=== PATIENT | male | born 1975 | race Caucasian/White ===

== ENCOUNTER 2023-09-16 18:42 | Emergency (ER) | payer OTHER ==
[2023-09-16 20:06] VITALS: BP 93/62; PULSE 75; RESP 22; TEMP 98.5
--- NOTE | 2023-09-16 20:06 | ED ---
General Adult HPI - General Chief complaint: Extremity Injury, Lower Stated complaint: left knee injury Time Seen by Provider: 09/16/23 20:00 Source: patient Mode of arrival: ambulatory Limitations: no limitations - History of Present Illness Initial comments: Patient is a 48-year-old male who presents to the emergency department for left knee injury. Patient currently resides at [facility]. He fell today while playing volleyball hurting his left knee. Patient states he has mild pain but was required to come for evaluation. Patient did not hit his head or lose consciousness. He took Motrin for arrival with improvement of pain. He denies pain with ambulation. Patient also complains of ringing in his ears for the past few days. He just finished an antibiotic for sinus infection. He denies fever, chills, headache, nausea, vomiting, loss of balance, ear pain. - Related Data Allergies Allergy/AdvReac Type Severity Reaction Status Date / Time No Known Allergies Allergy Verified 09/16/23 20:01 Review of Systems ROS Statement: Those systems with pertinent positive or pertinent negative responses have been documented in the HPI. ROS Other: All systems not noted in ROS Statement are negative. Past Medical History Past Medical History: No Reported History Past Surgical History: No Surgical Hx Reported Past Psychological History: No Psychological Hx Reported Past Alcohol Use History: None Reported Past Drug Use History: None Reported General Exam Limitations: no limitations General appearance: alert ENT exam: Present: normal oropharynx. Absent: TM's normal bilaterally (Fluid behind bilateral tympanic membranes no erythema or bulging) Neck exam: Present: normal inspection, full ROM. Absent: tenderness, meningismus, lymphadenopathy Respiratory exam: Present: normal lung sounds bilaterally. Absent: respiratory distress, wheezes, rales, rhonchi, stridor Cardiovascular Exam: Present: regular rate, normal rhythm, normal heart sounds. Absent: systolic murmur, diastolic murmur, rubs, gallop, clicks Left Upper Leg exam: Present: normal inspection, full ROM. Absent: tenderness, swelling Knee exam: Present: normal inspection, full ROM, tenderness (Mild medial left knee). Absent: swelling, abrasion, laceration, ecchymosis, deformity, crepitus, dislocation, erythema, effusion Lower Leg exam: Present: normal inspection, full ROM. Absent: tenderness, swelling Neurovascular tendon exam: Present: no vascular compromise. Absent: sensory deficit Gait: observed and normal Neurological exam: Present: alert Psychiatric exam: Present: normal affect, normal mood Skin exam: Present: warm, dry, intact, normal color. Absent: rash Course Vital Signs 09/16/23 19:58 Temperature 98.5 F Pulse Rate 75 Respiratory 22 Rate Blood Pressure 93/62 O2 Sat by Pulse 98 Oximetry Procedures - Orthopedic Splinting/Casting Injury #1 Side: left Lower Extremity Injury Location: knee Lower Extremity Immobilizer: Kin wrap Medical Decision Making - Medical Decision Making Was pt. sent in by a medical professional or institution (, [facility], PULMONARY NURSE PRACTITIONER, urgent care, hospital, or retirement...) When possible be specific @ [facility] Did you speak to anyone other than the patient for history (EMS, parent, family, police, friend...)? What history was obtained from this source @ -No Did you review nursing and triage notes (agree or disagree)? Why? @ -I reviewed and agree with nursing and triage notes Were old charts reviewed (outside hosp., previous admission, EMS record, old EKG, old radiological studies, urgent care reports/EKG's, retirement records)? Report findings @ -No old charts were reviewed Differential Diagnosis (chest pain, altered mental status, abdominal pain women, abdominal pain men, vaginal bleeding, weakness, fever, dyspnea, syncope, headache, dizziness, GI bleed, back pain, seizure, CVA, palpatations, mental health)? @ -not applicable EKG interpreted by me (3pts min.). @ -As above X-rays interpreted by me (1pt min.). @ -No fracture or dislocation of the left knee CT interpreted by me (1pt min.). @ -None done U/S interpreted by me (1pt. min.). @ -None done What testing was considered but not performed or refused? (CT, X-rays, U/S, labs)? Why? @ -None What meds were considered but not given or refused? Why? @ -None Did you discuss the management of the patient with other professionals (professionals i.e. [facility] Rehman, PULMONARY NURSE PRACTITIONER, lab, RT, psych nurse, social studies teacher, lace inspector, teacher, search and rescue officer, skilled nursing case manager)? Give summary @ -No Was smoking cessation discussed for >3mins.? @ -No Was critical care preformed (if so, how long)? @ -No Were there social determinants of health that impacted care today? How? (Homelessness, low income, unemployed, alcoholism, drug addiction, transportation, low edu. Level, literacy, decrease access to med. care, alf, rehab)? @ -No Was there de-escalation of care discussed even if they declined (Discuss DNR or withdrawal of care, Hospice)? DNR status @ -No What co-morbidities impacted this encounter? (DM, HTN, Smoking, COPD, CAD, Cancer, CVA, ARF, Chemo, Hep., AIDS, mental health diagnosis, sleep apnea, morbid obesity)? @ -None Was patient admitted / discharged? Hospital course, mention meds given and route, prescriptions, significant lab abnormalities, going to OR and other pertinent info. @ -48-year-old presenting with left knee injury. X-ray interpreted by myself shows no acute fracture or dislocation. Patient has mild pain without erythema or swelling. Able to ambulate without limitation. The left knee was wrapped in Kin bandage we discussed RICE in detail. Patient does have bilateral ear effusion without infection. Recommended Zyrtec or Claritin and follow up with ENT specialist for tinnitus Undiagnosed new problem with uncertain prognosis? @ -No Drug Therapy requiring intensive monitoring for toxicity (Heparin, Nitro, Insulin, Cardizem)? @ -No Were any procedures done? @ -No Diagnosis/symptom? @ -Tinnitus, left knee sprain, bilateral ear effusion Acute, or Chronic, or Acute on Chronic? @ Acute Uncomplicated (without systemic symptoms) or Complicated (systemic symptoms)? @ -Uncomplicated Side effects of treatment? @ -No Exacerbation, Progression, or Severe Exacerbation? @ -No Poses a threat to life or bodily function? How? (Chest pain, USA, CT, pneumonia, PE, COPD, DKA, ARF, appy, cholecystitis, CVA, Diverticulitis, Homicidal, Suicidal, threat to staff... and all critical care pts) @ -No Dr. Millard is my attending Disposition Clinical Impression: Left knee sprain, Acute effusion of both middle ears, Tinnitus Disposition: HOME SELF-CARE Condition: Good Instructions (If sedation given, give patient instructions): Knee Sprain (ED), Tinnitus (ED) Additional Instructions: Take allergy medications such as Zyrtec or Claritin for fluid in ears. Follow up with ENT specialist in 1-2 days. Rest ice and elevate the left knee. Alternate Tylenol and Motrin for any pain. Return to the emergency department if you experience new, concerning, or worsening symptoms. Is patient prescribed a controlled substance at d/c from ED?: No Referrals: None,Stated [Primary Care Provider] - 1-2 days Wolf Thompson MD [STAFF PHYSICIAN] - 1-2 days
--- NOTE | 2023-09-16 21:07 | XR ---
EXAMINATION TYPE: XR knee complete LT DATE OF EXAM: 09/16/2023 8:43 PM CLINICAL INDICATION:Male, 48 years old with history of injury; COMPARISON: None. TECHNIQUE: XR knee complete LT; examined in Frontal, lateral and oblique projections. FINDINGS: No evidence of any acute osseous pathology, soft tissue swelling, or joint effusion is no jonnie. Fabella is present. Skin consultations are scattered throughout the extremity. Tricompartmental osteophyte formation involving the femoral condyles, tibial plateau and patella. Mi ld joint space narrowing. IMPRESSION: 1. No acute osseous pathology. 2. Moderate tricompartmental osteoarthritic changes.
== END 2023-09-16 21:52 | disposition home or self-care (01) ==
LOC: EC 18:42
DX: S83.92XA Sprain of unspecified site of left knee, initial encounter (principal); H93.13 Tinnitus, bilateral; X58.XXXA Exposure to other specified factors, initial encounter; Y93.68 Activity, volleyball (beach) (court)
CPT/HCPCS: 99283